=== PATIENT | male | born 1990 | race Caucasian/White ===

== ENCOUNTER 2018-07-30 13:18 | Emergency (ER) | payer BC, MEDICAID ==
[~2018-07-30] VITALS: Ht 182.9 cm; Wt 81.6 kg
[2018-07-30 15:20] LABS: Alcohol, Urine < 3.0 mg/dL (0-5); Amphetamine Screen, Urine NEGATIVE (NEGATIVE); Barbiturate Scree,Urine NEGATIVE (NEGATIVE); Benzodiazephine Screen, Urine NEGATIVE (NEGATIVE); Cannabinoid Screen, Urine NEGATIVE (NEGATIVE); Cocaine Screen, Urine NEGATIVE (NEGATIVE); Opiate Scree,Urine NEGATIVE (NEGATIVE); Phencyclidine Screen, Urine NEGATIVE (NEGATIVE)
[2018-07-30 16:28] VITALS: BP 133/76
[2018-07-30] MEDS ORDERED: ACETAMINOPHEN 325 MG TAB PO ONE (16:45)
[2018-07-30 16:59] LABS: Urine Bacteria NONE SEEN /hpf (None Seen); Urine Blood Negative /uL (Negative); Urine Mucus FEW (None Seen); Urine Specific Gravity 1.014 (1.001-1.035); Urine WBC <1 /hpf (0 - 3)
[2018-07-30 18:59] LABS: Blood Alcohol < 3.0 mg/dL (0-5)
[2018-07-30 19:07] LABS: Acetaminophen 8.8 ug/mL (10-30); Salicylate < 1.7 mg/dL (2.8-20.0)
== END 2018-07-30 19:15 | disposition left against medical advice (07) ==
LOC: EDUNIT# 13:18 → EDBD 13:18 → ER 13:23
DX: F41.9 Anxiety disorder, unspecified (principal); F31.9 Bipolar disorder, unspecified
CPT/HCPCS: 36415; 70450; 71045; 80307; 80320; 80329; 81001; 83735; 93005; 94761